=== PATIENT | female | born 1975 | race Caucasian/White ===

== ENCOUNTER 2023-12-17 09:44 | Day surgery (SDC) | payer BC ==
[~2023-12-17] VITALS: Ht 165.1 cm; Wt 81.7 kg
[2023-12-17] MEDS ORDERED: THEO300ERA PO (10:20)
[2023-12-17] MEDS ORDERED: ALBU90OI6 INH (10:21)
[2023-12-17] MEDS ORDERED: SYMBICORT 160-4.6 GM (10:21)
[2023-12-17] MEDS ORDERED: SYMBICORT 160-4.6 GM INH (10:22)
[2023-12-17 11:24] VITALS: BP 120/74
== END 2023-12-17 11:33 | disposition home or self-care (01) ==
LOC: ORSCSDS 09:44
PROVIDERS: Surgery
PROC: 0DJD8ZZ Inspection of Lower Intestinal Tract, Via Natural or Artificial Opening Endoscopic (ICD-10-PCS; principal; 2023-12-17 11:00)
DX: Z12.11 Encounter for screening for malignant neoplasm of colon (principal); Z87.19 Personal history of other diseases of the digestive system; K57.30 Diverticulosis of large intestine without perforation or abscess without bleeding; Z68.30 Body mass index [BMI] 30.0-30.9, adult; K64.8 Other hemorrhoids; Z79.899 Other long term (current) drug therapy
CPT/HCPCS: J0461; J2405; J2704; J7120; Q9968

== ENCOUNTER 2024-09-09 20:58 | Emergency (ER) | payer BC ==
[~2024-09-09] VITALS: Ht 167.6 cm; Wt 67.1 kg
[~2024-09-09 20:58] MED LIST: ALBU90OI6 INH; SYMBICORT 160-4.6 GM; SYMBICORT 160-4.6 GM INH; THEO300ERA PO
[2024-09-09 21:23] LABS: BASOPHILS ABSOLUTE AUTO 0.07 K/mm3 (0.00-0.23); BASOPHILS PERCENT AUTO 1 % (0-2); EOSINOPHILS ABSOLUTE AUTO 0.21 K/mm3 (0.00-0.68); EOSINOPHILS PERCENT AUTO 2 % (0-6); Hematocrit 43.3 % (33.0-51.0); Hemoglobin 14.9 g/dL (11.5-16.0); IMMATURE GRAN ABSOLUTE AUTO 0.11 K/mm3 (0.00-0.10); IMMATURE GRAN PERCENT AUTO 1 % (0-1); LYMPHOCYTES ABSOLUTE AUTO 3.78 K/mm3 (0.84-5.20); LYMPHOCYTES PERCENT AUTO 31 % (21-46); MONOCYTES ABSOLUTE AUTO 0.72 K/mm3 (0.16-1.47); MONOCYTES PERCENT AUTO 6 % (4-13); Mean Corpuscular HGB 32.8 pg (26.0-34.0); Mean Corpuscular HGB Conc 34.4 g/dL (31.5-36.5); Mean Corpuscular Volume 95 fL (80-100); Mean Platelet Volume 10.9 fL (9.1-12.4); NEUTROPHILS ABSOLUTE AUTO 7.16 K/mm3 (1.96-9.15); NEUTROPHILS PERCENT AUTO 59 % (41-73); Platelet Count 325 K/mm3 (150-400); RDW Coefficient Variation 12.7 % (11.7-14.2); RDW Standard Deviation 44.6 fL (35.1-46.3); Red Blood Cell Count 4.54 M/mm3 (3.80-5.20); White Blood Cell Count 12.05 K/mm3 (4.00-11.30)
[2024-09-09 21:43] LABS: Albumin, Blood 4.2 g/dL (3.4-5.0); Albumin/Globulin Ratio 1.2 (0.8-1.8); Bilirubin, Total 0.3 mg/dL (0.1-1.0); Bun/Creatinine Ratio 43.1 (12.0-20.0); Calcium, Blood 10.2 mg/dL (8.5-10.1); Creatinine, Blood 0.67 mg/dL (0.40-1.00); Globulin, Blood 3.6 g/dL (2.2-4.0); Potassium, Blood 3.4 mmol/L (3.5-5.5); Total Protein, Blood 7.8 g/dL (6.4-8.2)
[2024-09-09] MEDS ORDERED: NS 1,000 ML IV SCH (21:55)
[2024-09-09 23:40] VITALS: BP 116/78
== END 2024-09-09 23:42 | disposition home or self-care (01) ==
LOC: ER 20:58
PROVIDERS: Physician Assistant
DX: F10.129 Alcohol abuse with intoxication, unspecified (principal); J45.909 Unspecified asthma, uncomplicated
CPT/HCPCS: 80053; 80320; 85025; 96360; 99284-25; J7030

== ENCOUNTER 2024-11-24 06:49 | Emergency (ER) | payer BC ==
[~2024-11-24] VITALS: Ht 165.1 cm; Wt 70.3 kg
[2024-11-24 06:59] VITALS: BP 148/80
[2024-11-24] MEDS ORDERED: AMOX-CLAV 875-1 EAC5 PO (07:00)
== END 2024-11-24 09:30 | disposition home or self-care (01) ==
LOC: ER 06:49
DX: M54.2 Cervicalgia (principal); H92.02 Otalgia, left ear; J45.909 Unspecified asthma, uncomplicated
CPT/HCPCS: 70480; 99283-25